=== PATIENT | male | born 2000 | race Two or more races ===

== ENCOUNTER 2025-10-09 22:16 | Emergency (ER) | payer OTHER ==
[~2025-10-09] VITALS: Ht 180.3 cm; Wt 83.0 kg
[2025-10-09 22:59] VITALS: PULSE 63; TEMP 99.2
[2025-10-09 23:00] VITALS: O2SAT 97
--- NOTE | 2025-10-09 23:05 | ED.PDOC ---
History of Present Illness HPI Comments Patient is a 24-year-old male with no significant past medical history who comes in due to back pain. According to the patient, he lifted some heavy weights around 5:00 p.m. and started experiencing back pain that he localizes to the right lateral back concentrated in the middle, pressure-like pain, intermittent, 9/10 in intensity and progressively worsening which is what prompted this visit to the ER. Patient notes pain is worse with deep inspiration and movement without any relieving factors, denies having similar symptoms in the past. Denies any saddle anesthesia. Denies any urinary/fecal retention or incontinence. Is able to ambulate but pain on ambulation. On review of systems patient denies everything. Chief Complaint: Back Pain Time Seen by MD: 22:45 Allergies: Coded Allergies: NO KNOWN ALLERGIES (Unverified , 10/09/25) Information Source: Patient Mode of Arrival: Wheelchair Past Medical History PAST MEDICAL HISTORY: Denies Surgical History (Cont'd) Right hand surgery Social History Smoker: Other (Uses vape) Alcohol: Occasionally Drugs: Denies Drug Use Lives In: Home Constitutional: denies: chills, diaphoresis, fatigue, fever, malaise, sweats, weakness, others EENTM: denies: blurred vision, double vision, ear bleeding, ear discharge, ear drainage, ear pain, ear ringing, eye pain, eye redness, hearing loss, mouth pain, mouth swelling, nasal discharge, nose bleeding, nose congestion, nose pain, photophobia, tearing, throat pain, throat swelling, voice changes, others Respiratory: denies: cough, hemoptysis, orthopnea, SOB at rest, shortness of breath, SOB with excertion, stridor, wheezing, others Cardiovascular: denies: chest pain, dizzy spells, diaphoresis, Dyspnea on exertion, edema, irregular heart beat, left arm pain, lightheadedness, palpitations, PND, syncope, others Gastrointestinal: denies: abdomen distended, abdominal pain, blood streaked bowels, constipated, diarrhea, dysphagia, difficulty swallowing, hematemesis, melena, nausea, poor appetite, poor fluid intake, rectal bleeding, rectal pain, vomiting, others Genitourinary: denies: burning, dysuria, flank pain, frequency, hematuria, incontinence, penile discharge, penile sore, pain, testicle pain, testicle swelling, urgency, others Neurological: denies: dizziness, fainting, headache, left sided numbness, left sided weakness, numbness, paresthesia, pre-existing deficit, right sided numbness, right sided weakness, seizure, speech problems, tingling, tremors, weakness, others Musculoskeletal: reports: back pain, muscle stiffness; denies: gout, joint pain, joint swelling, muscle pain, neck pain, others Integumetry: denies: bruises, change in color, change in hair/nails, dryness, laceration, lesions, lumps, rash, wounds, others Allergic/Immunocompromised: denies: Difficulty Healing, Frequent Infections, Hives, Itching, others Hematologic/Lymphatic: denies: anemia, blood clots, easy bleeding, easy bruising, swollen glands, others Endocrine: denies: excessive hunger, excessive sweating, excessive thirst, excessive urination, flushing, intolerance to cold, intolerance to heat, unexplained weight gain, unexplained weight loss, others Psychiatric: denies: anxiety, bipolar disorder, depression, hopeless, panic disorder, schizophrenia, sleepless, suicidal, others Physical Exam General Appearance: Mild Distress HEENT: Normal ENT Inspection, PERRL/EOMI Neck: None, Non-Tender, Normal, Normal Inspection Respiratory: Lungs Clear, No Accessory Muscle Use, No Respiratory Distress Cardiovascular: Regular Rate/Rhythm Breast Exam: Deferred Gastrointestinal: Non Tender, Normal Bowel Sounds Genitalia: Deferred Pelvic: Deferred Rectal: Rectal Exam not done Extremities: No calf tenderness, Normal inspection, Normal range of motion, Non-tender Neurologic: No Motor Deficits, Normal Mood, No Sensory Deficits Cerebellar Function: Normal Reflexes: NOT DONE Skin: Dry, None, Normal Color Peripheral Pulses: 2+ dorsalis pedis (R), 2+ dorsalis pedis (L) Lymphatic: NOT DONE Was a procedure done? Was a procedure done?: No Differential Dx Considerations may include: Musculoskeletal pain Lumbar strain X-Ray, Labs, Meds, VS Vital Signs Date Time Temp Pulse Resp B/P (MAP) Pulse Ox O2 Delivery O2 Flow Rate FiO2 10/09/25 23:00 97 Room Air* 0 21 10/09/25 22:59 99.2 63 16 122/67 (85) 96 99.2 10/09/25 22:18 97.3 69 18 143/84 99 97.3 Current Medications Medications (Trade) Dose Ordered Sig/Tiffanie Route Start Time Stop Time Status Last Admin Acetaminophen (Tylenol Tablet Or Capsule) 1,000 mg ONCE ONCE PO 10/09/25 23:00 10/09/25 23:01 DC 10/09/25 23:27 Ketorolac Tromethamine (Toradol Injection) 30 mg ONCE ONCE IM 10/09/25 23:00 10/09/25 23:01 DC 10/09/25 23:28 Lidocaine (Lidoderm 5% Topical Patch) 1 patch ONCE ONCE TOP 10/09/25 23:00 10/09/25 23:01 DC 10/09/25 23:27 Cyclobenzaprine HCl (Flexeril Tablet) 5 mg ONCE ONCE PO 10/09/25 23:15 10/09/25 23:16 DC 10/09/25 23:27 Time of 1ST Reevaluation: 23:55 Reevaluation 1ST: Improved Patient Education/Counseling: Diagnosis, Treatment, Prognosis, Need For Follow Up Family Education/Counseling: No Family Present SEPSIS Sepsis Screen Date sepsis recognized/suspect: Oct 09, 2025 Time Sepsis recognized/suspect: 2224 Recent Procedure: No On Antibiotic Therapy: No Respiratory Rate >20: No Heart Rate >90: No Temp<36 C (96.8 F) or >38.3 C: No SBP <90 or MAP <65 mmHG: No New Acute Mental Status Change: No Is the patient on CPAP, BIPAP,: No Vital Signs Date Time Temp Pulse Resp B/P (MAP) Pulse Ox O2 Delivery O2 Flow Rate FiO2 10/09/25 23:00 97 Room Air* 0 21 10/09/25 22:59 99.2 63 16 122/67 (85) 96 99.2 10/09/25 22:18 97.3 69 18 143/84 99 97.3 Medications Medications Dose Ordered Sig/Tiffanie Route Start Time Stop Time Status Last Admin Dose Admin Acetaminophen 1,000 mg ONCE ONCE PO 10/09/25 23:00 10/09/25 23:01 DC 10/09/25 23:27 Cyclobenzaprine HCl 5 mg ONCE ONCE PO 10/09/25 23:15 10/09/25 23:16 DC 10/09/25 23:27 Ketorolac Tromethamine 30 mg ONCE ONCE IM 10/09/25 23:00 10/09/25 23:01 DC 10/09/25 23:28 Lidocaine 1 patch ONCE ONCE TOP 10/09/25 23:00 10/09/25 23:01 DC 10/09/25 23:27 Departure 1 Departure Time of Disposition: 00:18 (24-year-old male with sudden onset right-sided lower back pain. Patient did not have any direct trauma to the back. Requires no x-rays as I do not suspect any underlying fractures. Had no numbness, weakness of extremities, no signs concerning for herniated disc, nerve impingement, acute lumbar cord compromise. Does not warrant any emergent MR imaging of the lumbar spine. Patient was treated with IM Toradol, oral Tylenol, Flexeril and a topical lidocaine patch. Feeling improved after interventions. Stable for discharge further outpatient management. Will be given a prescription for Tylenol, ibuprofen, Flexeril. Advised to follow up with outpatient primary care doctor for re-evaluation and further management.) Impression: Primary Impression: Lumbar sprain Qualified Codes: S33.5XXA - Sprain of ligaments of lumbar spine, initial encounter Additional Impression: Musculoskeletal pain Disposition: HOME / SELF CARE / HOMELESS Condition: Stable e-Prescriptions Cyclobenzaprine HCl (Cyclobenzaprine Hydrochlo) 5 Mg Tab 5 MG PO Q8HPRN PRN for 3 Days, #10 TAB Prov: EDDI SPEAR MD 10/10/25 Ibuprofen Micronized (Ibuprofen) 600 Mg Tab 600 MG PO Q6HPRN PRN for 7 Days, #30 TAB Prov: EDDI SPEAR MD 10/10/25 Acetaminophen (Acetaminophen Extra Stren) 500 Mg Tab 1000 MG PO Q6HPRN PRN for 7 Days, #56 TAB Prov: EDDI SPEAR MD 10/10/25 Comments Patient noted improvement in pain at re-evaluation. No red flag symptoms. Neuro exam intact. Able to ambulate albeit with pain. Pain controlled with ED therapy. Appropriate for discharge with strict return precautions. Patient was prescribed cyclobenzaprine 5 mg t.i.d. for 3 days as well as Motrin p.o.. Critical Care Note Critical Care Time?: No Stability Stability form required: ADITI Ayala Oct 09, 2025 23:05 EDDI SPEAR MD Oct 10, 2025 00:45
[2025-10-09] MEDS: ACETAMINOPHEN 500 MG TAB or CAP PO ONE (23:27)
[2025-10-09] MEDS: CYCLOBENZAPRINE HCL 10 MG TAB PO ONE (23:27)
[2025-10-09] MEDS: LIDOCAINE 5% TOPICAL PATCH TOP ONE (23:27)
[2025-10-09] MEDS: KETOROLAC TROMETH 60MG/2ML VIAL IM ONE (23:28)
[2025-10-10] MEDS ORDERED: ACET-6 PO (00:39)
[2025-10-10] MEDS ORDERED: CYCL-614 PO (00:39)
[2025-10-10] MEDS ORDERED: IBUP1TAB5 PO (00:39)
[2025-10-10 00:59] VITALS: BP 113/55; RESP 16; O2SAT 95
== END 2025-10-10 01:18 | disposition home or self-care (01) ==
LOC: ER 22:16 → EDBD 22:16 → ER 10-10 01:07
DX: S33.5XXA Sprain of ligaments of lumbar spine, initial encounter (principal); M54.9 Dorsalgia, unspecified; F10.90 Alcohol use, unspecified, uncomplicated; F17.290 Nicotine dependence, other tobacco product, uncomplicated; Z98.890 Other specified postprocedural states; X50.0XXA Overexertion from strenuous movement or load, initial encounter; Y93.89 Activity, other specified; Y92.89 Other specified places as the place of occurrence of the external cause; Y99.8 Other external cause status
CPT/HCPCS: 96372; 99284; J1885